=== PATIENT | male | born 1960 | race Caucasian/White ===

== ENCOUNTER 2021-10-23 10:50 | Outpatient (CLI) | payer BC ==
[2021-10-23] MEDS ORDERED: PRED10TA23 PO (11:39)
[2021-10-23] MEDS ORDERED: AMLO5TAB PO (11:39)
[2021-10-23 12:03] LABS: BASOPHILS # (AUTO) 0.1 X10'3 (0-0.2); BASOPHILS % (AUTO) 0.7 % (0-1); EOSINOPHILS # (AUTO) 0.1 X10'3 (0-0.9); EOSINOPHILS % (AUTO) 0.9 % (0-6); LYMPHOCYTES # (AUTO) 0.5 X10'3 (1.1-4.8); LYMPHOCYTES % (AUTO) 7.9 % (21-51); MEAN CORPUSCULAR HEMOGLOBIN 31.6 PG (27.0-31.0); MEAN CORPUSCULAR VOLUME 92.8 FL (78-98); MEAN PLATELET VOLUME 8.5 FL (7.4-10.4); MONOCYTES # (AUTO) 0.3 X10'3 (0-0.9); MONOCYTES % (AUTO) 4.1 % (2-12); NEUTROPHILS # (AUTO) 5.9 X10'3 (1.8-7.7); NEUTROPHILS % (AUTO) 86.4 % (42-75); PRE OP HEMATOCRIT 41.1 % (42.0-52.0); PRE OP PLATELET COUNT 221 X10'3 (140-440); RED BLOOD COUNT 4.43 X10'6 (4.70-6.10); RED CELL DISTRIBUTION WIDTH 13.7 % (11.5-14.5)
[2021-10-23 12:16] LABS: PRE OP PROTIME 10.3 SECONDS (9.0-12.0)
[2021-10-23 12:22] LABS: ALBUMIN 3.5 G/DL (3.4-5.0); ALKALINE PHOSPHATASE 27 IU/L (46-116); BLOOD UREA NITROGEN 18 MG/DL (7-18); BUN/CREATININE RATIO 17.8 (5.4-32.0); CHLORIDE 104 MMOL/L (99-107); CREATININE 1.01 MG/DL (0.60-1.10); PRE OP ALT 44 U/L (30-65); PRE OP ANION GAP 9 (8-16); PRE OP POTASSIUM 3.7 MMOL/L (3.4-5.1); PRE OP SODIUM 138 MMOL/L (135-145); TOTAL CARBON DIOXIDE 24.9 MMOL/L (24-32); eGFR 75 ML/MIN
[2021-10-23 12:23] LABS: ALBUMIN/GLOBULIN RATIO 0.9 (1.1-1.5); PRE OP AST 18 U/L (10-37); PRE OP BILIRUB, TOTAL 0.4 MG/DL (0.0-1.0); TOTAL PROTEIN 7.6 G/DL (6.4-8.2)
[2021-10-23 12:24] LABS: PRE OP GLUCOSE 316 MG/DL (70-104)
[2021-10-23 13:19] LABS: HEMOGLOBIN A1C 8.6 % (4.5-6.2)
== END 2021-10-23 23:59 | disposition home or self-care (01) ==
LOC: PRE-OP 10:50 → EDSTATUS 10-30 08:00
PROVIDERS: ATTEND Otolaryngology
DX: Z01.812 Encounter for preprocedural laboratory examination (principal); Z20.822 Contact with and (suspected) exposure to COVID-19; J32.9 Chronic sinusitis, unspecified
CPT/HCPCS: 36415; 80053; 83036; 85025; 85576; 85610; 85730; 93005; U0003; U0005